=== PATIENT | female | born 1950 | race Caucasian/White ===

== ENCOUNTER 2019-04-15 11:22 | Emergency (ER) | payer MEDICARE, BC ==
[2019-04-15] MEDS ORDERED: Sodium Chloride 0.9% 1,000 ML IV SCH ×2 (11:45→12:15)
--- NOTE | 2019-04-15 11:47 | EDM.PDOC ---
ED HPI GENERAL MEDICAL PROBLEM - General Chief Complaint: General Stated Complaint: nausea and dehydrated Time Seen by Provider: 04/15/19 11:40 Source of Information: Reports: Patient, Family, RN History Limitations: Reports: No Limitations - History of Present Illness INITIAL COMMENTS - FREE TEXT/NARRATIVE: 68 yr female presents to ER with symptoms of dehydration. States history of breast cancer with metastasis. Last Chemotherapy was about 2 weeks ago in [place]. Home is [place] and she is vacationing in [facility]. She is drinking supplements, taking in puddings, and unable to drink increase in fluids r/t symptoms of choking on fluids. 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 She is using thicken to her fluids and this is working some better. She is noting some increase in shortness of breath, but states there is lymph nodes enlargement to right side of sternum. She did have a scan in January and reports results are poor and is trying a different chemotherapy now. She and friend have been working at getting puddings and nutrients in. She does have Zofran and Compazine with her and have other alternative therapy for appetite stimulant. - Related Data Allergies Allergy/AdvReac Type Severity Reaction Status Date / Time Penicillins Allergy Rash Verified 04/15/19 15:05 Sulfa (Sulfonamide Allergy Rash Verified 04/15/19 15:05 Antibiotics) Home Meds: Home Meds Aspirin 81 mg PO DAILY 04/15/19 [History] Hydrocodone/Acetaminophen [Hydrocodon-Acetaminophn 10-325] 1 tab PO Q4H PRN [History] Levothyroxine 75 mcg PO ACBREAKFAST 04/15/19 [History] Ondansetron [Zofran ODT] 4 mg PO Q6H PRN 04/15/19 [History] PACLitaxel Protein-Bound [Abraxane] 100 mg IV ASDIRECTED 04/15/19 [History] Pegfilgrastim [Neulasta] 6 mg SQ ASDIRECTED 04/15/19 [History] Prochlorperazine Maleate [Compazine] 10 mg PO Q6HR PRN 04/15/19 [History] atorvaSTATin [Lipitor] 40 mg PO BEDTIME 04/15/19 [History] ED ROS GENERAL - Review of Systems Review Of Systems: See Below Constitutional: Reports: Malaise, Weakness, Fatigue. Denies: Fever, Chills Respiratory: Reports: Shortness of Breath, Wheezing Cardiovascular: Reports: Dyspnea on Exertion. Denies: Chest Pain, Edema GI/Abdominal: Reports: Anorexia, Nausea, Other (weight loss) : Reports: No Symptoms Musculoskeletal: Reports: No Symptoms ED EXAM, GENERAL - Physical Exam Exam: See Below Exam Limited By: No Limitations General Appearance: Alert, No Apparent Distress Ears: Hearing Loss Nose: Normal Inspection, Normal Mucosa Throat/Mouth: No Airway Compromise, Other (hoarse voice noted) Head: Atraumatic, Normocephalic Neck: Normal Inspection, Supple, Non-Tender Respiratory/Chest: Wheezing (middle lung areas) Cardiovascular: Normal Peripheral Pulses, Regular Rate, Rhythm, No Edema Extremities: Normal Range of Motion, Non-Tender, No Pedal Edema Neurological: Alert, Oriented, Normal Cognition Psychiatric: Normal Affect, Tearful Skin Exam: Warm, Dry, Normal Color Lymphatic: Other (lymphadenopathy to right neck area.) Course - Orders/Labs/Meds Orders: Active Orders 24 hr Category Date Time Status Chest 2V [CR] Stat Exams 04/15/19 12:43 Taken Sodium Chloride 0.9% [Normal Saline] 1,000 ml Med 04/15/19 12:15 Active IV ASDIRECTED Medication Orders Sodium Chloride (Normal Saline) 1,000 mls @ 999 mls/hr IV ASDIRECTED SERA Labs: Laboratory Tests 04/15/19 04/15/19 Range/Units 12:00 12:00 WBC 14.8 H (4.0-11.0) K/uL RBC 4.53 (3.80-5.80) M/uL Hgb 13.6 (11.5-16.5) g/dL Hct 41.0 (37.0-47.0) % MCV 91 (76-96) fL MCH 30.0 (27.0-32.0) pg MCHC 33.2 (31.0-35.0) g/dL RDW 18.5 H (11.0-16.0) % Plt Count 322 (150-500) K/uL MPV 11.3 H (6.0-10.0) fL Neut % (Auto) 83.8 H (45.0-70.0) % Lymph % (Auto) 8.0 L (20.0-40.0) % Vance % (Auto) 6.6 (3.0-10.0) % Eos % (Auto) 0.2 L (1.0-5.0) % Baso % (Auto) 1.4 H (0.0-0.5) % Neut # (Auto) 12.42 H (2.00-7.50) K/uL Lymph # (Auto) 1.18 L (1.50-4.00) K/uL Vance # (Auto) 0.98 H (0.20-0.80) K/uL Eos # (Auto) 0.03 L (0.04-0.40) K/uL Baso # (Auto) 0.21 H (0.02-0.10) K/uL Sodium 138 (136-145) mmol/L Potassium 4.2 (3.5-5.1) mmol/L Chloride 100 (98-107) mmol/L Carbon Dioxide 25.2 (21.0-32.0) mmol/L Anion Gap 17.0 H (5.0-15.0) mmol/L BUN 18 (8-26) mg/dL Creatinine 0.81 (0.55-1.02) mg/dL Est Cr Clr Drug Dosing TNP Estimated GFR (MDRD) > 60 (>60) MLS/MIN BUN/Creatinine Ratio 22.2 (6-25) Glucose 117 H (74-100) mg/dL Calcium 8.8 (8.5-10.1) mg/dL Meds: Medications Generic Name Dose Route Start Last Admin Trade Name Freq PRN Reason Stop Dose Admin Sodium Chloride 1,000 mls @ 999 mls/hr 04/15/19 12:15 Normal Saline IV ASDIRECTED SERA Discontinued Medications Generic Name Dose Route Start Last Admin Trade Name Freq PRN Reason Stop Dose Admin Sodium Chloride 1,000 mls @ 125 mls/hr 04/15/19 11:45 Normal Saline IV ASDIRECTED SERA - Re-Assessments/Exams Free Text/Narrative Re-Assessment/Exam: 04/15/19 16:41 X-ray and labs completed and reviewed with pt. No significant findings noted. Increase in nodes to right chest, but good lung expansion. IV fluids of Nacl 1 Liter given, pt tolerated well. Recommend to increase intake of supplements and fluids as tolerated, use of thicken to prevent aspiration. RTC or ER if symptoms worsen or persist. Departure - Departure Time of Disposition: 13:25 Disposition: Home, Self-Care 01 Condition: Fair Clinical Impression: Weakness generalized - Discharge Information *PRESCRIPTION DRUG MONITORING PROGRAM REVIEWED*: Not Applicable *COPY OF PRESCRIPTION DRUG MONITORING REPORT IN PATIENT SHEMAR: Not Applicable Instructions: Dehydration, Adult, [id number] Referrals: PCP,None [Primary Care Provider] - Forms: ED Department Discharge Additional Instructions: Continue to increase fluids using liquid thickener as previously. Return to clinic or ER as needed. - My Orders Last 24 Hours: My Active Orders 04/15/19 12:15 Sodium Chloride 0.9% [Normal Saline] 1,000 ml IV ASDIRECTED 04/15/19 12:43 Chest 2V [CR] Stat - Assessment/Plan Last 24 Hours: My Active Orders 04/15/19 12:15 Sodium Chloride 0.9% [Normal Saline] 1,000 ml IV ASDIRECTED 04/15/19 12:43 Chest 2V [CR] Stat Plan: Recommend to increase intake of supplements and fluids as tolerated, use of thicken to prevent aspiration. RTC or ER if symptoms worsen or persist.
--- NOTE | 2019-04-16 10:18 | CR ---
DATE OF SERVICE: 04/15/2019 CLINICAL DATA: Shortness of breath PA and lateral chest: No priors. The heart size is normal. There is calcification of the aortic arch. The patient is status post right mastectomy. There is a right subclavian Port-A -Cath in place with its distal tip in the region of the superior vena cava. There are surgical clips in the right supraclavicular region. The lungs are clear. No pneumothorax. No pleural effusions. No evidence of acute intrathoracic disease. MTDD
== END 2019-04-15 13:25 | disposition home or self-care (01) ==
LOC: LB.ED 11:22
DX: R53.1 Weakness (principal); Z88.0 Allergy status to penicillin; Z88.2 Allergy status to sulfonamides; Z79.82 Long term (current) use of aspirin; Z79.899 Other long term (current) drug therapy
CPT/HCPCS: 36415; 71046; 80048; 85025; 96360; 99284; J7030